=== PATIENT | female | born 1940 | race Caucasian/White ===

== ENCOUNTER 2020-09-11 18:37 | Emergency (ER) | payer OTHER ==
[~2020-09-11] VITALS: Ht 165.1 cm; Wt 77.6 kg
[~2020-09-11 18:37] MED LIST: ALLO100 PO; ASPI500 PO; ASPI81CH PO; CYCL10 PO; ERGO400 PO; FISH1000 PO; HYDMOR2 PO; HYDR1TAB94 PO; Hair, Skin & N1 EACH PO; IBUHYD PO; LOSHYD PO; METO10 PO; MONT10T PO; SIMV40 PO; TAMO10 PO
[2020-09-11 19:15] LABS: BASOPHILS ABSOLUTE AUTO 0.04 K/mm3 (0.00-0.23); BASOPHILS PERCENT AUTO 1 % (0-2); EOSINOPHILS ABSOLUTE AUTO 0.06 K/mm3 (0.00-0.68); EOSINOPHILS PERCENT AUTO 1 % (0-6); Hematocrit 47.7 % (33.0-51.0); Hemoglobin 15.4 g/dL (11.5-16.0); IMMATURE GRAN ABSOLUTE AUTO 0.06 K/mm3 (0.00-0.10); IMMATURE GRAN PERCENT AUTO 1 % (0-1); LYMPHOCYTES ABSOLUTE AUTO 0.97 K/mm3 (0.84-5.20); LYMPHOCYTES PERCENT AUTO 11 % (21-46); MONOCYTES PERCENT AUTO 6 % (4-13); Mean Corpuscular HGB 33.5 pg (26.0-34.0); Mean Corpuscular HGB Conc 32.3 g/dL (31.5-36.5); Mean Corpuscular Volume 104 fL (80-100); Mean Platelet Volume 9.8 fL (9.1-12.4); NEUTROPHILS ABSOLUTE AUTO 7.25 K/mm3 (1.96-9.15); NEUTROPHILS PERCENT AUTO 82 % (41-73); Platelet Count 166 K/mm3 (150-400); RDW Coefficient Variation 14.4 % (11.7-14.2); RDW Standard Deviation 55.4 fL (35.1-46.3); White Blood Cell Count 8.88 K/mm3 (4.00-11.30)
[2020-09-11 19:33] LABS: Alanine Aminotransfer (ALT/SGP 49 U/L (12-78); Albumin, Blood 3.4 g/dL (3.4-5.0); Albumin/Globulin Ratio 1.1 (0.8-1.8); Alk Phos 77 U/L (50-136); Anion Gap 11 mmol/L (6-16); Aspartate Aminotrans (AST/SGOT 35 U/L (12-37); Bilirubin, Total 0.5 mg/dL (0.1-1.0); Blood Urea Nitrogen 12 mg/dL (8-24); Bun/Creatinine Ratio 16.3 (12.0-20.0); CO2, Blood 22 mmol/L (21-32); Calcium, Blood 8.9 mg/dL (8.5-10.1); Chloride, Blood 113 mmol/L (98-108); Creatinine, Blood 0.74 mg/dL (0.40-1.00); Glomerular Filtration Rate >60 (60-); Glucose, Blood 112 mg/dL (70-99); Potassium, Blood 3.7 mmol/L (3.5-5.5); Sodium, Blood 146 mmol/L (136-145); Total Protein, Blood 6.4 g/dL (6.4-8.2); Troponin I <0.015 ng/mL (0.000-0.040)
[2020-09-11 20:22] LABS: Source, Urine Clean Catch
[2020-09-11 20:25] LABS: Bilirubin, Urine Neg (Neg); Blood, Urine 1+ (Neg); Glucose Qualitative, Urine Neg (Neg); Ketones, Urine Neg (Neg); Leukocyte Esterase, Urine Neg (Neg); Nitrite, Urine Neg (Neg); Protein, Urine 1+ (Neg); Urobilinogen, Urine NORM (Normal); pH, Urine 6.5 (5.0-8.0)
[2020-09-11 20:35] LABS: Appearance, Urine Clear (Clear); Color, Urine Yellow (P-Yellow)
[2020-09-11 20:37] LABS: Bacteria Few /hpf; Squamous Epithelial Cells Rare /hpf (Few); U Amphetamine Screen Not Detected; U Barbituate Screen Not Detected; U Benzodiazapine Screen Not Detected; U Buprenorphine Screen Not Detected; U Cannabinoids Screen Not Detected; U Cocaine Screen Not Detected; U Methadone Screen Not Detected; U Methamphetamine Screen Not Detected; U Opiates Screen Not Detected; U Oxycodone Screen Not Detected; U Phencyclidine Screen Not Detected; U Propoxyphene Screen Not Detected; White Blood Cells, Urine 0-2 /hpf (0-5)
[2020-09-11 21:11] LABS: CPK Creatine Kinase 124 U/L (26-193); Ethanol (Alcohol), Blood, Med 152 mg/dL
[2020-09-16] MEDS ORDERED: VITAMIN B125000 MC1 PO (13:57)
[2020-09-16] MEDS ORDERED: OTEZLA30 MG PO (13:58)
[2020-09-16] MEDS ORDERED: GABA300 PO (13:58)
[2020-09-16] MEDS ORDERED: SERT50 PO (14:02)
[2020-09-16] MEDS ORDERED: LOSA25 PO (14:03)
[2020-09-16] MEDS ORDERED: Coq-1030 MG PO (14:04)
[2020-09-16] MEDS ORDERED: ATOR20 PO (14:05)
== END 2020-09-11 21:10 | disposition left against medical advice (07) ==
LOC: ER 18:37
PROVIDERS: Emergency Medicine
DX: S50.12XA Contusion of left forearm, initial encounter (principal); I10 Essential (primary) hypertension; J45.909 Unspecified asthma, uncomplicated; E78.5 Hyperlipidemia, unspecified; F10.10 Alcohol abuse, uncomplicated; Z88.8 Allergy status to other drugs, medicaments and biological substances; Z79.82 Long term (current) use of aspirin; Z86.718 Personal history of other venous thrombosis and embolism; Z79.899 Other long term (current) drug therapy; X58.XXXA Exposure to other specified factors, initial encounter
CPT/HCPCS: 80053; 81001; 82140; 82550; 84484; 85025; 93005; 93010; 99285-25; G0480

== ENCOUNTER 2020-09-17 08:02 | Day surgery (SDC) | payer OTHER ==
[~2020-09-17] VITALS: Ht 165.1 cm; Wt 77.0 kg
[~2020-09-17 08:02] MED LIST changes: +ATOR20 PO; +Coq-1030 MG PO; +GABA300 PO; +LOSA25 PO; +OTEZLA30 MG PO; +SERT50 PO; +VITAMIN B125000 MC1 PO
--- NOTE | 2020-09-17 12:49 | NUR ---
RIGHT GROIN SITE SOFT NON-TENDER WITH NO HEMATOMA AND NO PULSATILE BLEEDING AND INTACT DRESSING. PT STATES RIGHT GROIN "SORENESS" BUT NO SHARP PAIN IN RIGHT GROIN OR BACK. PT DENIES CHEST PAIN. CALL LIGHT IN REACH.
--- NOTE | 2020-09-17 13:23 | NUR ---
PT EATING LUNCH
--- NOTE | 2020-09-17 13:54 | NUR ---
DISCHARGE INSTRUCTIONS REVIEWED ALL QUESTIONS ANSWERED. 20 IV REMOVED FROM RIGHT AC WITH INTACT CANNULA. RIGHT FEMORAL GROIN SITE STILL SOFT WITH NO HEMATOMA, NO PULSATILE BLEEDING. PT ESCORTED OUT VIA WHEELCHAIR ESCORT.
== END 2020-09-17 13:50 | disposition home or self-care (01) ==
LOC: MHTC 08:02
DX: I70.248 Atherosclerosis of native arteries of left leg with ulceration of other part of lower leg (principal); L97.829 Non-pressure chronic ulcer of other part of left lower leg with unspecified severity; E78.5 Hyperlipidemia, unspecified; I10 Essential (primary) hypertension; I70.201 Unspecified atherosclerosis of native arteries of extremities, right leg; Z88.0 Allergy status to penicillin; Z88.5 Allergy status to narcotic agent; Z88.8 Allergy status to other drugs, medicaments and biological substances; Z79.899 Other long term (current) drug therapy; J45.909 Unspecified asthma, uncomplicated; Z79.82 Long term (current) use of aspirin
CPT/HCPCS: 37228; 37232; 75625; 75716; 75774; 85347; 99152; 99153; A9270; C1725; C1760; C1769; C1887; C1894; J1644; J2250; J3010; J7030; Q9967